=== PATIENT | female | born 1960 ===

== ENCOUNTER 2021-09-02 09:15 | Inpatient (IN) | payer OTHER ==
[~2021-09-02] VITALS: Ht 162.6 cm; Wt 117.9 kg
[2021-09-02] MEDS ORDERED: COZAAR50 MG PO (14:44)
[2021-09-02] MEDS ORDERED: HYDRODIURIL12.5 MG PO (14:44)
[2021-09-02] MEDS ORDERED: PEPCID PO (14:45)
[2021-09-02] MEDS ORDERED: TRAZODONE HCL150 MG PO (14:46)
[2021-09-02] MEDS ORDERED: ACID REDUCER20 M1 PO (14:46)
[2021-09-02] MEDS ORDERED: ALENDRONATE SOD70 MG PO (14:47)
[2021-09-02] MEDS ORDERED: RESTORIL PO (14:47)
[2021-09-02] MEDS ORDERED: HYDROXYCHLOROQ200 MG PO (14:48)
[2021-09-02] MEDS ORDERED: SYNTHROID200 MCG PO (14:48)
[2021-09-02] MEDS ORDERED: SIMVAST PO (14:49)
[2021-09-02] MEDS ORDERED: WELLBUTRIN XL150 M1 PO (14:49)
[2021-09-02] MEDS ORDERED: [UNRECOGNIZED DRUG - OTHER] PO (14:57)
[2021-09-10] MEDS ORDERED: PERCOCET 5-3251 EACH PO (07:16)
[2021-09-10] MEDS ORDERED: IBU800 MG PO (07:17)
== END 2021-09-10 11:32 | disposition home or self-care (01) | DRG 741 ==
LOC: OB/GYN 09-09 07:09 → O/R 09-09 07:09 → SURH 09-09 09:15 → OB/GYN 09-09 13:32
PROVIDERS: ADMIT Obstetrics & Gynecology Gynecology; ATTEND Obstetrics & Gynecology Gynecology
PROC: 0UT2FZZ Resection of Bilateral Ovaries, Via Natural or Artificial Opening With Percutaneous Endoscopic Assistance (ICD-10-PCS; 2021-09-09)
PROC: 0UT7FZZ Resection of Bilateral Fallopian Tubes, Via Natural or Artificial Opening With Percutaneous Endoscopic Assistance (ICD-10-PCS; 2021-09-09)
PROC: 0UT9FZZ Resection of Uterus, Via Natural or Artificial Opening With Percutaneous Endoscopic Assistance (ICD-10-PCS; principal; 2021-09-09 09:45)
DX: C54.1 Malignant neoplasm of endometrium (principal); N80.0 Endometriosis of uterus; N95.0 Postmenopausal bleeding; D25.2 Subserosal leiomyoma of uterus